=== PATIENT | female | born 1995 | race Caucasian/White ===

== ENCOUNTER 2017-08-17 23:06 | Inpatient (IN) | payer OTHER ==
[~2017-08-17] VITALS: Ht 162.6 cm; Wt 56.0 kg
[2017-08-17 23:11] VITALS: Ht 162.6 cm; Wt 56.0 kg
[2017-08-18 00:16] LABS: BASOPHIL % 0.4 % (0-2); PLATELET COUNT 222 x10^3mcL (130-400); RED CELL DISTRIBUTION WIDTH 13.3 % (11.5-14.5)
[2017-08-18 00:20] LABS: CALCIUM 8.8 mg/dL (8.5-10.1); CARBON DIOXIDE 30.5 mmol/L (21-32); CHLORIDE SERUM 106 mmol/L (98-107); CREATININE SERUM 0.9 mg/dL (0.6-1.0); GFR1 > 60 mL/min; GLUCOSE SERUM 74 mg/dL (74-106); POTASSIUM SERUM 3.9 mmol/L (3.5-5.1); SODIUM SERUM 144 mmol/L (136-145)
[2017-08-18 00:34] LABS: FREE T4 0.94 ng/dL (0.76-1.46)
[2017-08-18 00:50] LABS: UA SPECIFIC GRAVITY 1.015 (1.005-1.035); microscopic required? YES; urine erythrocyte NEGATIVE (NEGATIVE)
[2017-08-18 01:42] LABS: AMPHETAMINE QUAL UR NONE DETECTED (See below)
[2017-08-18 19:46] LABS: ALBUMIN 3.7 g/dL (3.4-5.0); BILIRUBIN DIRECT 0.07 mg/dL (0.0-0.2); BILIRUBIN TOTAL 0.3 mg/dL (0.20-1.00); TOTAL PROTEIN, SERUM 7.2 g/dL (6.4-8.2)
[2017-08-18 22:35] VITALS: BP 120/76
[2017-08-19] LABS: MAGNESIUM 2.2 mg/dL (1.8-2.4); PHOSPHOROUS 3.9 mg/dL (2.5-4.9)
[2017-08-19 00:39] LABS: CHOLESTEROL/HDL RATIO 3.2
[2017-08-19 06:28] VITALS: BP 105/72
[2017-08-19 12:22] VITALS: BP 100/65
[2017-08-19 18:49] VITALS: BP 114/72
== END 2017-08-19 20:30 | disposition left against medical advice (07) | DRG 751 ==
LOC: ED 23:06 → DU 08-18 21:48
PROVIDERS: Emergency Medicine; Internal Medicine
DX: F32.1 Major depressive disorder, single episode, moderate (principal); N17.0 Acute kidney failure with tubular necrosis; R45.851 Suicidal ideations; F12.10 Cannabis abuse, uncomplicated; N39.0 Urinary tract infection, site not specified
CPT/HCPCS: 36415; 83880; 84439; G0480; J0696; J7030; Q0092